=== PATIENT | male | born 1970 | race Caucasian/White ===

== ENCOUNTER 2020-04-21 03:17 | Emergency (ER) | payer SELFPAY ==
[~2020-04-21] VITALS: Ht 170.2 cm; Wt 63.5 kg
[~2020-04-21 03:17] MED LIST: ALBU90OI INH; ALBU90OI61 INH; AZIT250 PO; CEPH500 PO; CIPHYDOTSU EXT; FLUSAL2505 INH; HYDACE5 PO; HYDGUAL120 PO; IBUP800 PO; LISHYD1012 PO; LISHYD2012; LISHYD2012 PO; LISHYD2025 PO; LOPE2C PO; METO50 PO; MONT10T PO; NAPR220 PO; NAPR550 PO; OMEP20ER PO; ONDA4ODT MM; PENVK500 PO; TUDORZA PRESS400 MCG IH; Ultram50 MG PO; VALS80; VALS80 PO; Ventolin Soln3 ML INH
== END 2020-04-21 05:09 | disposition home or self-care (01) ==
LOC: ER 03:17
DX: M62.838 Other muscle spasm (principal); F17.210 Nicotine dependence, cigarettes, uncomplicated
CPT/HCPCS: 96372; 99283-25; J1885